=== PATIENT | male | born 1965 | race Hispanic/Latino ===

== ENCOUNTER 2022-12-11 20:24 | Emergency (ER) | payer OTHER, BC ==
[2022-12-11] MEDS ORDERED: Ibuprofen 800 MG TAB ONE (21:28)
[2022-12-11] MEDS ORDERED: HYDROcodone/Acetaminophen 10/325 mg Tablet ONE (21:28)
== END 2022-12-11 22:58 | disposition home or self-care (01) ==
LOC: BURERS 20:24
DX: S39.012A Strain of muscle, fascia and tendon of lower back, initial encounter (principal); S20.211A Contusion of right front wall of thorax, initial encounter; M47.896 Other spondylosis, lumbar region; V43.52XA Car driver injured in collision with other type car in traffic accident, initial encounter; W22.11XA Striking against or struck by driver side automobile airbag, initial encounter
CPT/HCPCS: 71046; 72131